=== PATIENT | female | born 1965 | race Asian ===

== ENCOUNTER 2016-08-04 02:22 | Emergency (ER) | payer MEDICAID, OTHER ==
[~2016-08-04] VITALS: Ht 160 cm; Wt 41.5 kg
[2016-08-04 02:26] VITALS: Ht 160 cm; Wt 41.5 kg
[2016-08-04] MEDS ORDERED: ELIM TOP (04:54)
[2016-08-04] MEDS ORDERED: CLIN-73 PO (04:55)
--- NOTE | 2016-08-04 05:00 | ERD ---
ER Documentation Chief Complaint Date/Time DATE: 08/04/16 TIME: 04:58 Chief Complaint rash x few weeks to arms and neck HPI This is a 50-year-old female presents to the ER with a rash to her arms, neck, back for the last few weeks. Patient states that rash is extremely itchy especially at night. Patient states that the rash moves and that it comes out of her body. She feels as if it is something internal. Patient denies any fevers or chills. She denies any sick contacts. ROS 12 point review of systems was done, all negative except per HPI. Medications Home Meds Active Scripts Clindamycin Hcl* (Clindamycin Hcl*) 300 Mg Capsule, 300 MG PO TID for 7 Days, CAP Prov:SAW,AMAYA C 08/04/16 Permethrin* (Elimite*) 5% Cr, 1 APPLIC TOP ONCE for 1 Day, TUB Prov:SAW,AMAYA C 08/04/16 Allergies Allergies: Coded Allergies: Penicillins (Verified Allergy, Unknown, 08/04/16) Sulfa (Sulfonamide Antibiotics) (Verified Allergy, Unknown, 08/04/16) Physical Exam Vitals Vital Signs Date Time Temp Pulse Resp B/P Pulse Ox O2 Delivery O2 Flow Rate FiO2 08/04/16 02:26 98.1 90 20 120/78 98 Physical Exam GENERAL: Patient speech is disorganized and it does not make sense. HEENT: Atraumatic CHEST: Clear to auscultation bilaterally. There are no rales, wheezes or rhonchi. HEART: Regular rate and rhythm. No murmurs, clicks, rubs or gallops. EXTREMITIES: Full range of motion. NEURO: Alert and oriented. SKIN: Burrowing rash all over body. Patient has an area of redness and swelling to the left thumb which may have been infected secondary to scratching. Procedures/MDM Differential Diagnosis: dermatitis, allergic urticaria, viral exanthem, insect bite, fungal infection ,viral exanthem, hand foot mouth disease, , impetigo, cellulitis, abscess, anel hardik syndrome, meningocemia, necrotizing fasciitis, myositis. This is a 50-year-old female presents to the ER with a rash this is likely scabies. Patient may have a bacterial infection secondary to scratching. Patient will be sent home with permethrin and clindamycin. She is to follow-up with her primary care doctor within 1-2 days or return to the ER sooner if symptoms worsen. Plan was discussed with the patient she understands and agrees with plan. Departure Diagnosis: Primary Impression: Scabies Condition: Stable Patient Instructions: Scabies Additional Instructions: Call your primary care doctor TOMORROW for an appointment during the next 1-2 days.See the doctor sooner or return here if your condition worsens before your appointment time. AMAYA SPRING Aug 04, 2016 05:00
== END 2016-08-04 05:17 | disposition home or self-care (01) ==
LOC: FTE 02:22
DX: B86 Scabies (principal)
CPT/HCPCS: 99283

== ENCOUNTER 2017-01-27 01:34 | Emergency (ER) | payer SELFPAY ==
[~2017-01-27] VITALS: Ht 160 cm; Wt 41.0 kg
[~2017-01-27 01:34] MED LIST: CLIN-73 PO; ELIM TOP
[2017-01-27 01:41] VITALS: Ht 160 cm; Wt 41.0 kg
[2017-01-27] MEDS ORDERED: HYDR-3011 PO (02:35)
[2017-01-27] MEDS ORDERED: CLIN-73 PO (02:35)
--- NOTE | 2017-01-27 03:38 | ERD ---
ER Documentation Chief Complaint Date/Time DATE: 01/27/17 TIME: 03:36 Chief Complaint Rash all over the body. HPI 51-year-old female presents here in emergency department for complaints of itching and rash all over the body, was diagnosed With scabies before, has been having lesions for 1 year now. Patient has been scratching all over, noted some pus some of the rash him a patient denies any fever or chills. Patient already is treated with scabies before. Patient does complain of itching all over the body. Patient did not take any medications to help with symptoms. ROS All systems reviewed and are negative except as per history of present illness. Medications Home Meds Active Scripts Hydroxyzine Hcl* (Hydroxyzine Hcl*) 25 Mg Tablet, 25 MG PO Q8H Y for ITCHING, # 30 TAB Prov:MERCY CARLISLE NP 01/27/17 Clindamycin Hcl* (Clindamycin Hcl*) 300 Mg Capsule, 300 MG PO TID for 10 Days, CAP Prov:MERCY ACRLISLE NP 01/27/17 Clindamycin Hcl* (Clindamycin Hcl*) 300 Mg Capsule, 300 MG PO TID for 7 Days, CAP Prov:SAWAMAYA C 08/04/16 Permethrin* (Elimite*) 5% Cr, 1 APPLIC TOP ONCE for 1 Day, TUB Prov:SAW,AMAYA C 08/04/16 Allergies Allergies: Coded Allergies: Penicillins (Verified Allergy, Unknown, 08/04/16) Sulfa (Sulfonamide Antibiotics) (Verified Allergy, Unknown, 08/04/16) PMhx/Soc History of Surgery: No Anesthesia Reaction: No Hx Neurological Disorder: No Hx Respiratory Disorders: No Hx Cardiac Disorders: No Hx Psychiatric Problems: No Hx Miscellaneous Medical Probl: Yes (scabies) Hx Alcohol Use: No Hx Substance Use: No Hx Tobacco Use: Yes Smoking Status: Never smoker FmHx Family History: No coronary disease, No diabetes, No other Physical Exam Vitals Vital Signs Date Time Temp Pulse Resp B/P Pulse Ox O2 Delivery O2 Flow Rate FiO2 01/27/17 01:41 98.6 75 20 141/85 100 Physical Exam GENERAL: The patient is well developed and appropriate for usual state of health, in no apparent distress. CHEST: Clear to auscultation bilaterally. There are no rales, wheezes or rhonchi. HEART: Regular rate and rhythm. No murmurs, clicks, rubs or gallops. No S3 or S4. ABDOMEN: Soft, nontender and nondistended. Good bowel sounds. No rebound or guarding. No gross peritonitis. No gross organomegaly or masses. No Helms sign or McBurney point tenderness. BACK: No midline or flank tenderness. EXTREMITIES: Equal pulses bilaterally. There is no peripheral clubbing, cyanosis or edema. No focal swelling or erythema. Full range of motion. Grossly neurovascularly intact. NEURO: Alert and oriented. Cranial nerves 2-12 intact. Motor strength in all 4 extremities with 5/5 strength. Sensation grossly intact. Normal speech and gait. SKIN: Noted multiple excoriations all over the body and lesions some of them has erythematous surrounding area, with purulent discharge. Some pustules are noted. There is no apparent rash or petechia. The skin is warm and dry. HEMATOLOGIC AND LYMPHATIC: There is no evidence of excessive bruising or lymphedema. No gross cervical, axillary, or inguinal lymphadenopathy. Procedures/MDM Medical decision making: Patient symptoms like it consistent with MRSA skin infection, most likely secondary infection from scratching the affected lesions. Low suspicion for any scabies. No suspicion for anaphylactic shock, or tachycardia. Low suspicion for any coagulopathies. Prescription was given for clindamycin, hydroxyzine, is advised to follow-up with primary care doctor in 2- 3 days, possibly see a field service technician specialist for further evaluation. Patient was advised to return to emergency department for any worsening symptoms. Departure Diagnosis: Primary Impression: Infection of skin due to methicillin resistant Staphylococcus ... Condition: Stable Patient Instructions: Mrsa Skin Infection, Suspected Or Confirmed MERCY CARLISLE NP Jan 27, 2017 03:38
== END 2017-01-27 03:01 | disposition home or self-care (01) ==
LOC: FTE 01:34
DX: L08.9 Local infection of the skin and subcutaneous tissue, unspecified (principal); B95.62 Methicillin resistant Staphylococcus aureus infection as the cause of diseases classified elsewhere
CPT/HCPCS: 99284

== ENCOUNTER 2017-02-07 03:01 | Emergency (ER) | payer SELFPAY ==
[~2017-02-07] VITALS: Ht 160 cm; Wt 41.0 kg
[~2017-02-07 03:01] MED LIST changes: +HYDR-3011 PO
[2017-02-07 03:08] VITALS: Ht 160 cm; Wt 41.0 kg
[2017-02-07] MEDS ORDERED: CALAMINE TOP (04:06)
[2017-02-07] MEDS ORDERED: CLIN-73 PO (04:06)
--- NOTE | 2017-02-07 04:21 | ERD ---
ER Documentation Chief Complaint Date/Time DATE: 02/07/17 TIME: 04:14 Chief Complaint scaterred body rashes HPI 51-year-old female presents here in emergency department for possible extension of clindamycin treatment for her MRSA infection. Patient states that the rash is improved a lot. Patient has been having this lesions all over the body chronically for the last one year that nobody has been treating. Patient states that clindamycin is helped a lot. Patient states that she can have more medication to help more with symptoms. Patient continues to have the itching. ROS All systems reviewed and are negative except as per history of present illness. Medications Home Meds Active Scripts Calamine* (Calamine*) 120 Ml Lotion, 1 APPLIC TOP Q4H for RASH, #1 BOT Prov:MERCY CARLISLE NP 02/07/17 Clindamycin Hcl* (Clindamycin Hcl*) 300 Mg Capsule, 300 MG PO TID for 4 Days, CAP Prov:MERCY CARLISLE NP 02/07/17 Hydroxyzine Hcl* (Hydroxyzine Hcl*) 25 Mg Tablet, 25 MG PO Q8H Y for ITCHING, # 30 TAB Prov:MERCY CARLISLE PERFORATOR TYPIST 01/27/17 Clindamycin Hcl* (Clindamycin Hcl*) 300 Mg Capsule, 300 MG PO TID for 10 Days, CAP Prov:MERCY CARLISLE PERFORATOR TYPIST 01/27/17 Clindamycin Hcl* (Clindamycin Hcl*) 300 Mg Capsule, 300 MG PO TID for 7 Days, CAP Prov:AMAYA SPRING 08/04/16 Permethrin* (Elimite*) 5% Cr, 1 APPLIC TOP ONCE for 1 Day, TUB Prov:AMAYA SPRING C 08/04/16 Allergies Allergies: Coded Allergies: Penicillins (Verified Allergy, Unknown, 08/04/16) Sulfa (Sulfonamide Antibiotics) (Verified Allergy, Unknown, 08/04/16) PMhx/Soc Medical and Surgical Hx: pt denies Surgical Hx History of Surgery: No Anesthesia Reaction: No Hx Neurological Disorder: No Hx Respiratory Disorders: No Hx Cardiac Disorders: No Hx Psychiatric Problems: No Hx Miscellaneous Medical Probl: Yes (scabies) Hx Alcohol Use: No Hx Substance Use: No Hx Tobacco Use: Yes Smoking Status: Current every day smoker [facility] Family History: No coronary disease, No diabetes, No other Physical Exam Vitals Vital Signs Date Time Temp Pulse Resp B/P Pulse Ox O2 Delivery O2 Flow Rate FiO2 02/07/17 03:08 98.2 64 20 136/81 98 Physical Exam GENERAL: The patient is well developed and appropriate for usual state of health, in no apparent distress. CHEST: Clear to auscultation bilaterally. There are no rales, wheezes or rhonchi. HEART: Regular rate and rhythm. No murmurs, clicks, rubs or gallops. No S3 or S4. ABDOMEN: Soft, nontender and nondistended. Good bowel sounds. No rebound or guarding. No gross peritonitis. No gross organomegaly or masses. No Helms sign or McBurney point tenderness. BACK: No midline or flank tenderness. EXTREMITIES: Equal pulses bilaterally. There is no peripheral clubbing, cyanosis or edema. No focal swelling or erythema. Full range of motion. Grossly neurovascularly intact. NEURO: Alert and oriented. Cranial nerves 2-12 intact. Motor strength in all 4 extremities with 5/5 strength. Sensation grossly intact. Normal speech and gait. SKIN: Excoriations, lesions all over with healing wounds. There is no apparent ecchymosis or petechia. The skin is warm and dry. HEMATOLOGIC AND LYMPHATIC: There is no evidence of excessive bruising or lymphedema. No gross cervical, axillary, or inguinal lymphadenopathy. Procedures/MDM Medical decision making: Most likely symptoms are consistent with MRSA infection , it is improving, patient was given 4 more days extension of clindamycin to help with her symptoms. Patient was given calamine cream to help with the itching also. No symptoms of any sepsis. No symptoms of any contagious rash at this time. Low suspicion for scabies, no suspicion for any allergic reaction, coagulopathies. Patient was advised to avoid scratching area, advised to follow- up with primary care doctor in 2-3 days for reevaluation of symptoms. Patient was advised to return to emergency department for any worsening symptoms. Departure Diagnosis: Primary Impression: Infection of skin due to methicillin resistant Staphylococcus ... Condition: Stable Patient Instructions: Mrsa Skin Infection, Suspected Or Confirmed MERCY CARLISLE NP Feb 07, 2017 04:21
== END 2017-02-07 04:18 | disposition home or self-care (01) ==
LOC: FTE 03:01
DX: L08.89 Other specified local infections of the skin and subcutaneous tissue (principal); B95.62 Methicillin resistant Staphylococcus aureus infection as the cause of diseases classified elsewhere; F17.210 Nicotine dependence, cigarettes, uncomplicated
CPT/HCPCS: 99283